=== PATIENT | female | born 1990 | race Caucasian/White ===

== ENCOUNTER 2021-11-09 04:22 | Emergency (ER) | payer BC ==
[2021-11-09] MEDS ORDERED: Sodium Chloride 0.9% 10 ML Syringe FLUSH PRN (04:38)
[2021-11-09] MEDS ORDERED: Lactated Ringers 1,000 ML IV SCH (04:45)
[2021-11-09] MEDS: Meclizine 12.5 MG Tab PO ONE (05:19)
[2021-11-09] MEDS: Ondansetron 4 MG Tab.DIS PO ONE (05:35)
[2021-11-09] MEDS: Ondansetron 4 MG/2 ML SDV IVPUSH ONE ×2 (05:37)
[2021-11-09 05:39] LABS: CHLORIDE,CL 106 mEq/L (98-106); SODIUM,NA 140 mEq/L (136-145)
[2021-11-09 05:44] LABS: AMPHETAMINES,URINE NEGATIVE (NEGATIVE); BARBITURATES,URINE NEGATIVE (NEGATIVE); BENZODIAZEPINE,URINE NEGATIVE (NEGATIVE); MDMA (ECSTASY), URINE NEGATIVE (NEGATIVE); METHADONE,URINE NEGATIVE (NEGATIVE); METHAMPHETAMINES,URINE NEGATIVE (NEGATIVE); OPIATES,URINE NEGATIVE (NEGATIVE); OXYCODONE,URINE NEGATIVE (NEGATIVE); PHENCYCLIDINE,URINE NEGATIVE (NEGATIVE); TCA,URINE NEGATIVE (NEGATIVE)
== END 2021-11-09 06:43 | disposition home or self-care (01) ==
LOC: CC.ED 04:22
DX: H81.10 Benign paroxysmal vertigo, unspecified ear (principal); E86.0 Dehydration; Z20.822 Contact with and (suspected) exposure to COVID-19
CPT/HCPCS: 36415; 70450; 71045; 80053; 80305-QW; 81003; 81025; 83605; 83735; 84439; 84443; 84484; 85025; 85379; 86140; 87804; 93005; 99284; 99284-25; A9270-GY; U0002

== ENCOUNTER 2022-09-08 19:13 | Emergency (ER) | payer BC ==
[2022-09-08] MEDS: Take Home: Cyclobenzaprine 10 MG Tab, 4 Tab Pack PO ONE (19:54)
== END 2022-09-08 20:10 | disposition home or self-care (01) ==
LOC: CC.ED 19:13
DX: M62.830 Muscle spasm of back (principal)
CPT/HCPCS: 99283; A9270-GY